=== PATIENT | female | born 1995 | race American Indian/Alaskan Native ===

== ENCOUNTER 2019-03-28 07:32 | Outpatient (CLI) | payer MEDICAID ==
[2019-03-28 08:09] VITALS: BP 118/66
== END 2019-03-28 08:56 | disposition home or self-care (01) ==
LOC: TRG 07:32
PROVIDERS: ATTEND Obstetrics & Gynecology
DX: O47.1 False labor at or after 37 completed weeks of gestation (principal); Z3A.33 33 weeks gestation of pregnancy
CPT/HCPCS: 59025